=== PATIENT | female | born 1995 | race Caucasian/White ===

== ENCOUNTER 2022-08-08 10:03 | Outpatient (CLI) | payer OTHER, SELFPAY ==
--- NOTE | ~2022-08-08 | US_ITS ---
EXAMINATION: US OB /maternal detail DATE: 08/08/2022 12:02 INDICATION: anatomic survey. TECHNIQUE: Real-time ultrasound of the pelvis was performed. COMPARISON: None. FINDINGS: There is a single living fetus in vertex presentation. The placenta is posterior, 1.3 cm from the ce rvix. The cervical length is 4.8 cm on transvaginal images. heart rate is 145 beats per minute (bpm). The amniotic fluid volume is subjectively normal. The following biometric data were obtained: Biparietal diameter (BPD): 4.0 cm; head circumference (HC): 15.1 cm; abdominal circumference (AC): 13 .3 cm; femur length (FL): 2.9 cm. These measurements are concordant. Estimated weight is 255 g +/- 38 g, which correlates with the 5th percentile when 12/27/22 is us ed as estimated date of delivery. As single measurements, these parameters are each equal to the following estimated gestational ages: BPD: 18 weeks 2 days. HC: 18 weeks 1 days. AC: 18 weeks 5 days. FL: 18 weeks 6 days. estimated gestational age based solely on measurements from this exam is 18 weeks 4 days +/- 1 weeks 2 days. The cerebral ventricles, cerebellum, cisterna magna, nuchal fold, and visualized portions of the spin e are normal. The heart is normal. The diaphragm, stomach, kidneys, and bladder are normal. There are two umbilical arteries to yield a 3-vessel cord. The cord insertion is normal. IMPRESSION: 1. Single living fetus in vertex presentation. 2. Small for gestational age. Estimated weight is 255 g +/- 38 g, which correlates with the 5t h percentile when 12/27/22 is used as estimated date of delivery. 3. Low-lying placenta. 4. Normal anatomic survey. Reviewed, dictated and finalized at location A. IMPRESSION: 1. Single living fetus in vertex presentation. 2. Small for gestational age. Estimated weight is 255 g +/- 38 g, which correlates with the 5th percentile when 12/27/22 is used as estimated date of . 3. Low-lying placenta. 4. Normal anatomic survey.
== END 2022-08-08 10:04 | disposition home or self-care (01) ==
PROVIDERS: PCP Pediatrics; Visit Provider Obstetrics & Gynecology Gynecology
DX: Z36.9 Encounter for antenatal screening, unspecified (principal); Z3A.18 18 weeks gestation of pregnancy
CPT/HCPCS: 76805

== ENCOUNTER 2022-09-04 14:45 | Outpatient (CLI) | payer OTHER, SELFPAY ==
--- NOTE | ~2022-09-04 | US_ITS ---
EXAMINATION: US OB follow up DATE: 09/04/2022 15:22 INDICATION: Estimated size less than expected for estimated gestational age TECHNIQUE: Real-time ultrasound of the pelvis was performed. The interpreting radiologist was not pre sent for the study. COMPARISON: 08/08/22 FINDINGS: There is a single living fetus in breech presentation. The placenta is posterior and low-lying with caudal margin 1.5 cm from the internal cervical os. Normal cervical length of 5.1 cm. heart rat e is 152 beats per minute (bpm). The amniotic fluid is subjectively normal. The following biometric data were obtained: BPD: 5.2 cm -> 21 weeks 5 days Head circumference: 20.4 cm -> 22 weeks 4 days Abdominal circumference: 19.1 cm -> 23 weeks 6 days Femur length: 3.8 cm -> 22 weeks 2 days These measurements are concordant. Head circumference to abdominal circumference ratio: 1.07 (normal range 1.05-1.22). Estimated weight: 554 g (+/-) 83 g or 1 lbs. 4 oz. (+/-) 3 oz. IMPRESSION: 1. Single living fetus in breech presentation with heart rate of 152 bpm. 2. Low-lying posterior placenta with caudal margin 1.5 cm from the internal cervical os. 3. Estimated weight is 15th percentile by Hadlock criteria when 12/27/2022 is used as the estima marisa date of delivery (FILIPPO). Please correlate with clinical information or earlier ultrasounds for mos t accurate FILIPPO. Reviewed, dictated and finalized at location A. IMPRESSION: 1. Single living fetus in breech presentation with heart rate of 152 bpm. 2. Low-lying posterior placenta with caudal margin 1.5 cm from the internal cer vical os. 3. Estimated weight is 15th percentile by Hadlock criteria when 12/27/2022 is used as the estimated date of delivery (FILIPPO). Please correlate with clinica l information or earlier ultrasounds for most accurate FILIPPO.
== END 2022-09-04 14:46 | disposition home or self-care (01) ==
LOC: ANHIMG 14:52
PROVIDERS: PCP Pediatrics; Visit Provider Advanced Practice Midwife
DX: O36.5930 Maternal care for other known or suspected poor fetal growth, third trimester, not applicable or unspecified (principal); O44.42 Low lying placenta NOS or without hemorrhage, second trimester
CPT/HCPCS: 76816

== ENCOUNTER 2022-10-17 09:36 | Outpatient (CLI) | payer OTHER, SELFPAY ==
--- NOTE | ~2022-10-17 | US_ITS ---
EXAMINATION: US OB follow up DATE: 10/17/2022 10:31 INDICATION: Low placenta. TECHNIQUE: Real-time transabdominal obstetric ultrasound. FINDINGS: Comparison to multiple prior studies sequentially, with oldest reviewed study dated 023. There is a single living fetus in vertex presentation. The placenta is posterior without placenta pr evia. AJITH measures 16.7 cm. cardiac activity and movement is noted with a heart rate of 147 beats per minute. T he amniotic fluid volume is normal. The following biometric data were obtained: BPD: 72mm corresponds to gestational age 28 weeks 5 days. Head circumference: 268mm corresponds to gestational age 29 weeks 1 days. Abdominal circumference: 254mm corresponds to gestational age 29 weeks 4 days. Femur length: 55mm corresponds to gestational age 28 weeks 6 days. Estimated weight: 1362grams +/- 204grams. IMPRESSION: 1. Single living intrauterine in vertex presentation with an estimated gestational age of 28 weeks 4 days by inititial ultrasound. Appropriate interval growth. 2. Normal placenta. Reviewed, dictated and finalized at location L. IMPRESSION: 1. Single living intrauterine in vertex presentation with an estimat ed gestational age of 28 weeks 4 days by inititial ultrasound. Appropriate int erval growth. 2. Normal placenta.
[2022-10-17 11:52] LABS: Hematocrit 38.9 % (37.0-47.0); Hemoglobin 13.3 g/dL (12.0-15.0)
[2022-10-17 12:08] LABS: Glucose 1 Hour PP 50gm Dose 150 mg/dL
[2022-10-17 12:31] LABS: Vitamin D 25 Hydroxy 28.8 ng/mL
[2022-10-17 12:49] LABS: HIV 1/2 Ab P24 Ag Result Negative (Negative)
== END 2022-10-17 09:37 | disposition home or self-care (01) ==
PROVIDERS: PCP Pediatrics; Visit Provider Obstetrics & Gynecology Gynecology
DX: O44.13 Complete placenta previa with hemorrhage, third trimester (principal); Z3A.28 28 weeks gestation of pregnancy
CPT/HCPCS: 36415; 76816; 82306; 82947; 85014; 85018; 86703; G0432

== ENCOUNTER 2022-10-19 07:44 | Outpatient (RCR) | payer OTHER, SELFPAY ==
[2022-10-19] MEDS: RHO(D) IMMUNE GLOBULIN 300 MCG/2 ML SYRINGE IM (16:25)
== END 2022-10-19 08:00 | disposition home or self-care (01) ==
LOC: ANHOBOP 07:44
PROVIDERS: PCP Pediatrics; Visit Provider Advanced Practice Midwife
DX: Z29.13 Encounter for prophylactic Rho(D) immune globulin (principal); O36.0190 Maternal care for anti-D [Rh] antibodies, unspecified trimester, not applicable or unspecified; Z3A.00 Weeks of gestation of pregnancy not specified
CPT/HCPCS: 36415; 85461; 86850; 86900; 86901; 90384; 96372; J2790

== ENCOUNTER 2022-11-22 07:54 | Outpatient (CLI) | payer OTHER, SELFPAY ==
[2022-11-22 10:03] LABS: Glucose 1 Hour PP 50gm Dose 176 mg/dL
== END 2022-11-22 07:55 | disposition home or self-care (01) ==
PROVIDERS: PCP Pediatrics; Visit Provider Advanced Practice Midwife
DX: Z36.9 Encounter for antenatal screening, unspecified (principal)
CPT/HCPCS: 36415; 82947

== ENCOUNTER 2022-12-08 15:46 | Outpatient (RCR) | payer OTHER, SELFPAY ==
[2022-12-08 17:03] VITALS: BP 111/44; PULSE 94
== END 2023-02-07 11:48 | disposition home or self-care (01) ==
LOC: ANHOBOP 15:46
PROVIDERS: PCP Pediatrics; Visit Provider Obstetrics & Gynecology Gynecology
DX: O36.8190 Decreased fetal movements, unspecified trimester, not applicable or unspecified (principal); Z3A.35 35 weeks gestation of pregnancy
CPT/HCPCS: 59025

== ENCOUNTER 2022-12-31 17:14 | Inpatient (IN) | payer OTHER, SELFPAY ==
[2022-12-31] VITALS (12 sets, daily range): BP systolic 111–137; BP diastolic 59–88; PULSE 81–107; TEMP 36.6–36.8; BMI 46.2
--- NOTE | 2022-12-31 18:07 | P.PNAN_ITS ---
Anes - Eval Pre Procedure Procedure: labor epidural Date/Time: 12/31/22 18:07 Surgeon: leisa Preop Diagnosis: pain during labor Pre Op Diagnosis: Induction of Labor Patient Data Age: 27 Gender: F Height: Weight: Allergies Allergy/AdvReac Type Severity Reaction Status Date / Time No Known Allergies Allergy Verified 12/11/22 12:04 Home Medications Medication Instructions Recorded Confirmed Type ergocalciferol (vitamin D2) 1,250 1,250 mcg PO WEEKLY 12/11/22 12/11/22 History mcg (50,000 unit) capsule insulin NPH isoph U-100 human 100 5 - 10 unit subcut HS 12/11/22 12/11/22 History unit/mL subcutaneous cartridge vit#24-iron amino acid 1 tablet PO DAILY 12/11/22 12/11/22 History chelat-folic acid 30 mg-975 mcg tablet Patient hx anesthesia problems: none Family hx anesthesia problems: none Results Review: All pre-operative results and documents have been reviewed as part of the pre- operative evaluation. PMF Past Medical History Medical History (Updated 12/31/22 @ 18:08 by Emely Calles CRNA) Gestational diabetes IUP (intrauterine ), incidental Obesity Family History Family History (Updated 12/11/22 @ 12:10 by Zeny Antonio RN) Grandparent Non Hodgkin's lymphoma Social History Social History Substance use: never Spiritual care concerns: No Exam Day of Procedure 12/31/22 18:07
[2022-12-31 18:45] LABS: Glucose Point of Care 87 mg/dl (65-105)
--- NOTE | 2022-12-31 19:04 | LDADM ---
This patient, Chelo Catalan, was admitted to Labor/Delivery/Recovery 105 on 12/31/22 at 17:14. Plans for labor, pain management and were discussed with patient. Patient/family oriented to hospital policies and general routines including ID bracelet, bed and alarms, visiting hours, pain management, procedures, bathroom and other care routines, personal items, smoking policy, room service/diet and guest tray routines, infant security routines, and visiting hours. Patient/Family are encouraged to report perceived risks to care and to ask questions if they do not understand what they are told or what they should do. See OBIX for further documentation.
[2022-12-31 19:08] LABS: Basophils Percent Auto 0.3 % (0.2-1.2); Eosinophils Absolute Auto 0.1 K/mm3 (0-0.3); Eosinophils Percent Auto 0.5 % (0-4.4); Hematocrit 40.2 % (37.0-47.0); Hemoglobin 13.7 g/dL (12.0-15.0); Immature Granulocyte Absolute 0.17 K/mm3 (0.00-0.031); Immature Granulocyte Percent A 1.6 % (0-0.5); Lymphocytes Absolute Auto 2.39 K/mm3 (0.9-3.2); Mean Corpuscular HGB Conc 34.1 g/dl (32-36); Mean Corpuscular Hemoglobin 29.4 pg (26-34); Mean Corpuscular Volume 86.3 fl (80-100); Mean Platelet Volume 11.3 fl (7.4-10.4); Monocytes Absolute Auto 1.1 K/mm3 (0.1-0.6); Monocytes Percent Auto 10.1 % (2.6-8.5); Neutrophils Absolute Auto 7.1 K/mm3 (1.3-6.7); Neutrophils Percent Auto 65.5 % (45.5-73.1); Platelet Count Result 230 k/mm3 (150-375); Red Blood Count 4.66 M/mm3 (4.2-5.4); Red Cell Distribution Width 13.7 % (11.5-14.5); White Blood Count 10.8 K/mm3 (4.5-10.0)
[2022-12-31] MEDS: DINOPROSTONE 10 MG VAG INSERT VAGINAL (19:24)
[2022-12-31 22:04] LABS: Glucose Point of Care 71 mg/dl (65-105)
[2023-01-01] VITALS (209 sets, daily range): BP systolic 83–163; BP diastolic 45–119; PULSE 72–121; TEMP 36.6–37.2; O2SAT 94–100
[2023-01-01 02:11] LABS: Glucose Point of Care 102 mg/dl (65-105)
[2023-01-01 06:38] LABS: Glucose Point of Care 101 mg/dl (65-105)
[2023-01-01] MEDS: LACTATED RINGERS 1,000 ML 125 ML IV CONT ×3 (08:08→15:36)
[2023-01-01] MEDS: OXYTOCIN 30 UNITS/NS 500 ML 30 UNITS/500 ML BAG 6 UNITS IV CONT (08:09)
[2023-01-01 10:36] LABS: Glucose Point of Care 113 mg/dl (65-105)
[2023-01-01 11:06] LABS: Rapid Plasma Reagin Non-Reactive (NonReactive)
[2023-01-01 14:43] LABS: Glucose Point of Care 76 mg/dl (65-105)
--- NOTE | 2023-01-01 16:30 | WPDOBADMIT ---
Obstetrics - Admit Note Admission Note: record reviewed. No pertinent additions to the history and/or any subsequent changes in the physical findings that are not consistent with the expected course of the were found. Additions to the history and/or subsequent changes in the physical findings follow. Here for MIL @39 wks for GDMA2. Cervadil last pm and now pitocin. Now 2-/-2 AROM with meconium noted. Continue MIL.
[2023-01-01 18:43] LABS: Glucose Point of Care 73 mg/dl (65-105)
[2023-01-01 22:25] LABS: Glucose Point of Care 77 mg/dl (65-105)
[2023-01-02] VITALS (236 sets, daily range): BP systolic 96–152; BP diastolic 21–107; PULSE 69–173; RESP 16–18; TEMP 36.4–37.2; O2SAT 94–100
[2023-01-02 02:07] LABS: Glucose Point of Care 81 mg/dl (65-105)
[2023-01-02 04:24] LABS: Glucose Point of Care 79 mg/dl (65-105)
[2023-01-02 06:42] LABS: Glucose Point of Care 81 mg/dl (65-105)
--- NOTE | 2023-01-02 07:28 | PM.OBPNLAB ---
Pain Control Date/time seen: 01/02/23 07:28 Pain control: tolerating well and epidural Comments: resting on side Pelvic Exam Dilation (cm): 8 Effacement (%): 80 Amniotic membrane status: Ruptured Contractions Contraction pattern: Regular Status status: Category l Assessment and Plan Assessment: induction ongoing Plan: continuous present management
[2023-01-02] MEDS: ONDANSETRON INJ 4 MG/2 ML VIAL IV PUSH (07:31)
[2023-01-02] MEDS: LACTATED RINGERS 1,000 ML 125 ML IV CONT (08:27)
[2023-01-02 09:46] LABS: Glucose Point of Care 69 mg/dl (65-105)
[2023-01-02] MEDS: AMPICILLIN 2 GM/NS 100 ML 2 GM/100 ML BAG IVPB (10:21)
[2023-01-02 11:49] LABS: Glucose Point of Care 84 mg/dl (65-105)
--- NOTE | 2023-01-02 12:37 | P.PCNOB_ITS ---
OB - Delivery Note Procedure Delivery date: 01/02/23 Procedure: Events: Gestational Diabetes (GDMA2) Induction method: AROM, Per Pitocin Protocol and Per Cervidil Protocol Delivery monitor: External FHT and Internal Uterine Route of delivery: Laceration Description: Perineal - 2nd Degree Delivery repair: vicryl (3-0) Specimen: Yes (placenta) Quantitative Blood Loss (ml): 150 Anesthesia type: Local Disposition: Floor Baby Date of : 01/02/23 Weeks of gestation at delivery: 39 gender: Male Weight (pounds): 7 Weight (ounces): 2 presentation: vertex position: Right Occiput Anterior Placenta delivery description: Spontaneous Cord Vessel Description: 3 Vessels, Nuchal Cord (tight, delivered through) and Clamped/Cut score one minute: 8 score five minutes: 9 Narrative: installation and service technician present for delivery secondary to meconium
--- NOTE | 2023-01-02 12:39 | PM.OBDSVD ---
DS: Admitting Diagnosis Discharge Date 01/04/23 Admitting Diagnosis IUP 39 wks GDMA2 DS: Discharge Diagnosis Discharge Diagnosis (1) (normal spontaneous vaginal delivery): Code(s): O80 - Encounter for full-term uncomplicated delivery Status: Acute OB - DS: Summary OB Procedures : NST, Ultrasound and Other (diabetes mgmt) OB Procedures Intrapartum: Spontaneous Vag Delivery OB Procedures: : None Peripartum Data Delivery Method: Natural Vaginal Laceration Description: Perineal - 2nd Degree complications: none Status at Discharge Functional status at discharge: independent ambulation Overall status at discharge: patient is progressing back to baseline Time Spent with Patient Time attestation: Total time spent providing and/or coordinating discharge services: DS: Data Data Completed and Pending Labs on day of discharge: Labs from last 24 hours 01/02/23 01/02/23 01/02/23 11:47 09:41 06:29 POC Capillary Glucose 84 69 81 01/02/23 01/02/23 01/01/23 04:20 02:04 22:23 POC Capillary Glucose 79 81 77 01/01/23 01/01/23 18:36 14:38 POC Capillary Glucose 73 76 Discharge Plan Discharge Attending physician on discharge: Lilia Roman Consulting providers: Jeannette Connor; Emely Calles; Skyler Mckeon Discharging Clinician: Jeannette Connor Anticipated Discharge Date/Time: 01/04/23 12:40 Patient Disposition: Home, Self-Care Activity: may shower and pelvic rest Diet: regular Wound Care Instructions: follow printed instructions Discharge Instructions: Education: Mom and Baby Guide Given to: Mother Follow-Up: Call your delivering provider's office for an appointment to be seen in: 6 Weeks Mom and baby should come to the [facility] for the follow-up appointment. Appointment Date/Time: January 05, 2023 at 3:30 pm What to expect at your follow-up visit: Blood Pressure Check Physical Assessment Call [phone] if you are unable to keep your appointment time. BREAST CARE: * Wear a snug supportive bra. * For engorgement discomfort: Breast Feeding: * Apply warm moist washcloths * Express milk as needed to relieve engorgement * Wear loose clothing Bottle Feeding: * May apply ice packs * For sore nipples: * Identify correct latch-on * Apply warm moist washcloths before and after nursing * Air dry nipples after nursing * May apply Lansinoh cream to nipples PERINEAL CARE: * Until bleeding stops, use your tavo bottle after urinating * Change your pad frequently throughout the day * You may take sitz baths several times a day (fill your bathtub with warm water and soak for 20 minutes.) Do NOT bathe in the water * No tub baths until seen by your physician - You may shower ACTIVITY: * Rest as much as possible. * Do not exercise or lift anything heavier than your baby (such as laundry or other children.) * Avoid stairs or driving as much as possible. * Do not put anything into the vagina. No douching, tampons, or sexual activity until seen by physician. NOTIFY PHYSICIAN IF YOU HAVE ANY QUESTIONS OR IF ANY OF THE FOLLOWING SYMPTOMS OCCUR: * If your vaginal bleeding becomes foul smelling. * If your vaginal bleeding becomes more heavy than a period or if your bleeding changes from pink to bright red. However, you may pass an occasional walnut-sized clot once or twice for the first week . * If you experience a sharp, shooting pain in your calves. * If you discover a hard, reddened area on your breast or if you experience flu-like symptoms. DIET: * Eat regular, well-balanced meals. * Drink plenty of fluids daily. If , drink to thirst. Continue taking your vitamin and any other supplements as previously directed (Examples: Iron, Vitamin D). You may take Tylenol 1000mg over the counter every 6 hours
[2023-01-02] MEDS: OXYTOCIN 30 UNITS/NS 500 ML 30 UNITS/500 ML BAG 125 UNITS IV CONT (12:40)
[2023-01-02] MEDS: IBUPROFEN 600 MG TABLET PO (14:47)
[2023-01-02] MEDS: BENZOCAINE 20% AER SPR (*SP) 56 GM CAN 1 SPRAY TOPICAL (14:48)
[2023-01-02] MEDS: WITCH HAZEL 40 PADS 1 PAD TOPICAL (14:48)
--- NOTE | 2023-01-02 15:55 | PC.NURSE ---
Patient transferred to post room #290 via wheelchair. Support person present. Oriented to unit, room, information board, rooming in, admission packet and security measures. Patient verbalizes understanding.
[2023-01-03 03:40] VITALS: BP 128/81; PULSE 86; RESP 18; TEMP 36.6
[2023-01-03] MEDS: IBUPROFEN 600 MG TABLET PO ×2 (03:43→20:40)
[2023-01-03 06:53] LABS: Hematocrit 35.7 % (37.0-47.0); Hemoglobin 12.2 g/dL (12.0-15.0)
[2023-01-03 07:35] VITALS: BP 123/65; PULSE 76; RESP 18; TEMP 36.6; O2SAT 99
[2023-01-03] MEDS: MULTIVIT/MIN/PREN/FOL AC/IRON TABLET 1 TAB PO (08:43)
[2023-01-03] MEDS: DOCUSATE SODIUM 100 MG CAPSULE PO (08:43)
--- NOTE | 2023-01-03 10:50 | PC.NURSE ---
Breast pump provided per pt request and infant poor latch. Instructions given on cleaning, care, usage, that there should be no pain, pumping schedule for milk production, collection, and storage of human milk. Patient was assessed for correct placement, flange size, to pump for comfort and nipple stretching/stimulation for adequate milk production every 3 hours (8 times in 24 hours) 1-2 times at night. Mother voiced understanding of the education shared along with mom and baby guide for additional resource information.
--- NOTE | 2023-01-03 10:55 | P.PNOB_ITS ---
OB - PN: Subj Subjective Date/time seen: 01/03/23 0730 Patient comments: no complaints and pain well controlled baby status: other (attempting to breastfeed) [place] feeding status: breast and bottle feeding Narrative: PPD 1 from . Tolerating regular diet, urinating without difficulty. Denies passing any large clots. Bonding with infant. OB - PN: Obj Data Labs 01/03/23 06:41 Labs: Laboratory Results - last 24 hr 01/02/23 01/03/23 01/03/23 11:47 06:38 06:41 Hgb 12.2 Hct 35.7 L POC Capillary Glucose 84 Blood Type A Negative Antibody Screen Negative Screen Negative Baby's Blood Type A pos Baby's YOLANDA Negative Doses of RhIg Required 1 OB - PN A/P Plan day: 1 Plan: routine care Time Spent With Patient Time: Total time spent is greater than 50% in coordination of care (as documented) at patient's floor/unit and/or counseling patient: Review of Systems Review of Systems: All systems reviewed & are unremarkable except as noted in HPI and below Constitutional: Constitutional: Reports no additional constitutional complaints Exam Narrative: Alert and oriented. Mood is pleasant and cooperative. Perineum with minimal edema. Fundus firm and below umbilicus. Const: General: cooperative, healthy appearing, no acute distress and alert Orientation/consciousness: patient oriented x3 Limitations: no limitations Resp: Effort & Inspection: normal respiratory effort and able to speak in complete sentences Auscultation: clear to auscultation bilaterally Cardio: Rate: regular rate GI: Inspection: normal to inspection Auscultation: normal bowel sounds : Speculum Exam - Vagina: vaginal bleeding OB/external & speculum: vaginal bleeding Skin: General skin exam: normal color and no rashes or lesions noted Neuro: General: patient oriented x3 and moves all extremities Cognition (Neuro): normal cognition Extrem: General: normal to inspection and no calf tenderness Psych: Appearance: grossly normal Mental Status: mental status grossly normal Affect: normal affect Thought process: Normal thought process pres ent
[2023-01-03] MEDS: RHO(D) IMMUNE GLOBULIN 300 MCG/2 ML SYRINGE IM (12:17)
--- NOTE | 2023-01-03 12:20 | PC.NURSE ---
[id number] Introductions were made, then consulted with patient to assess needs related to . Mother led the conversation with her?plans to breastfeed?her infant, the?experience so far and supplementation. Mother works well with her with encouragement and education. Encouraged understanding of the benefits of skin to skin (demonstrating unwrapping and placing upright on her chest), stimulating with massage touch, changing positions to encourage wakefulness, how to watch for early feeding cues, responsive feeding, feeding on demand (aiming for 8-12 times in 24 hours, about every 2-3 hours), milk production, hand expression, building/maintaining a milk supply, duration of feeding, signs of adequate intake/output and how to record on the feeding sheet. Reviewed positioning and ear, shoulder, hip alignment, supporting the breast to facilitate a deep latch, asymmetrical latch (off-center), leading with the chin with a big, open, wide gape and body close to mother. Infant doesn't demonstrate a big, open, wide gape and arches his back when brought to the breast. was given skin to skin time to explore and use instincts to find the breast. Nipple care reviewed with optimal latch and good positioning. Gentle attempts were made with infant to encourage latching without success. Educated mother on protecting her milk supply with pumping since infant is not latching and receiving bottles. (risks and benefits were discussed along with her medical history) Mother voiced understanding of skin to skin, stimulating with massage touch, responsive feedings, hand expressed colostrum, talking to infant to encourage if it has been 2 -2.5 hours since the start of the last , to call if infant does not latch, or if there is discomfort with . Resources provided for inpatient/outpatient with feeding sheet and the mom/baby guide. Parents voiced understanding of information, demonstrated learning and will call if there is a request for assistance. Reported to the Primary RN and she will initiate pumping.
[2023-01-03 12:24] VITALS: BP 132/81; PULSE 73; RESP 18; TEMP 36.8; O2SAT 99
--- NOTE | 2023-01-03 16:28 | WPDANLDPN2 ---
Anes-Prog Note L&D Date/Time: 01/03/23 16:28 Comfortable throughout: labor and delivery Neuraxial method: epidural Epidural/Spinal procedure site: clean & non-tender Neuro status: Neuro function grossly intact. Cardiovascular status: normal Respiratory status: normal Airway patency: baseline Mental status: baseline Post-Op hydration status: normal Vital Signs: Last Vital Signs Temp 36.8 C 01/03/23 12:24 Pulse 73 01/03/23 12:24 Resp 18 01/03/23 12:24 BP 132/81 01/03/23 12:24 Pulse Ox 99 01/03/23 12:24 O2 Del Method Room Air 01/02/23 19:40 Pain score (VAS): 2/10 Post-procedural complaints: none Patient feedback: Patient satisfied with anesthetic care.
[2023-01-03 20:40] VITALS: BP 143/85; PULSE 83; RESP 18; TEMP 36.5
[2023-01-04 08:05] VITALS: BP 131/71; PULSE 72; RESP 16; TEMP 36.6; O2SAT 98
[2023-01-04] MEDS: IBUPROFEN 600 MG TABLET PO (08:52)
[2023-01-04] MEDS: MULTIVIT/MIN/PREN/FOL AC/IRON TABLET 1 TAB PO (08:53)
[2023-01-04] MEDS: DOCUSATE SODIUM 100 MG CAPSULE PO (08:53)
--- NOTE | 2023-01-04 10:19 | PM.OBPNVD ---
OB - PN: Subj Subjective Date/time seen: 01/04/23 0940 Interval history: PPD 2. Doing well. Urinating without difficulty. Denies passing any large clots. Denies dizziness with ambulating. Tolerating po food an fluids. Bonding with . Attempting and is breast pumping. OB - PN: Obj Data Labs 01/03/23 06:41 Labs: Laboratory Results - last 24 hr 01/03/23 06:38 Blood Type A Negative Antibody Screen Negative Screen Negative Baby's Blood Type A pos Baby's YOLANDA Negative Doses of RhIg Required 1 OB - PN A/P Plan day: 2 Plan: discharge home Time Spent With Patient Time: Total time spent is greater than 50% in coordination of care (as documented) at patient's floor/unit and/or counseling patient: Review of Systems Review of Systems: All systems reviewed & are unremarkable except as noted in HPI and below Constitutional: Constitutional: Reports no additional constitutional complaints Genitourinary: Comments: Urinating without difficulty. Exam Narrative: Alert and oriented. Mood is pleasant and cooperative. Perineum with minimal edema. Fundus firm and below umbilicus. Const: General: cooperative, healthy appearing, no acute distress and alert Orientation/consciousness: patient oriented x3 Limitations: no limitations Resp: Effort & Inspection: normal respiratory effort and able to speak in complete sentences Auscultation: clear to auscultation bilaterally Cardio: Rate: regular rate GI: Inspection: normal to inspection Auscultation: normal bowel sounds : Speculum Exam - Vagina: vaginal bleeding OB/external & speculum: vaginal bleeding Skin: General skin exam: normal color and no rashes or lesions noted Neuro: General: patient oriented x3 and moves all extremities Cognition (Neuro): normal cognition Extrem: General: normal to inspection and no calf tenderness Psych: Appearance: grossly normal Mental Status: mental status grossly normal Affect: normal affect Thought process: Normal thought process present
--- NOTE | 2023-01-04 10:39 | PC.NURSE ---
[id number] RN was called to the room for assistance with syringe feeding. Reported to RN this morning mother is pumping and formula bottle feeding. Entering the room I visualized father of the baby attempting to bottle feed his infant without success. Parents had decided to put the 4mls of colostrum mixed in with a small amount of formula to feed the infant with a bottle and no longer wanted to syringe feed. Demonstrated positioning upright, burped , then supported with bottle feeding. Reviewed milk production and consistent pumping with mother to protect her milk supply. Resources reviewed for community support, medication information reviewed per [employer] recommending no marijuana use and when to call a provider using the resource of the mom and baby guide. Mother voiced understanding of the education shared. Reported to the primary RN.
--- NOTE | 2023-01-04 12:00 | PC.NURSE ---
Patient viewed the discharge video Mother & Baby Care, The First Two Weeks . Patient was given the opportunity and encouraged to ask questions. Patient verbalized understanding of information shared and has been given the mother/baby guide for home reference.
[2023-01-05 14:54] VITALS: BP 131/77; PULSE 77; RESP 20; TEMP 37.1; O2SAT 100
== END 2023-01-04 13:30 | disposition home or self-care (01) | DRG 560 ==
LOC: ANHLDR 01-02 12:40 → ANHOB2 01-02 16:01
PROVIDERS: Admitting Provider Obstetrics & Gynecology Gynecology; PCP Pediatrics; Visit Provider Obstetrics & Gynecology Gynecology
DX: O24.424 Gestational diabetes mellitus in childbirth, insulin controlled (principal); Z37.0 Single live birth; O42.92 Full-term premature rupture of membranes, unspecified as to length of time between rupture and onset of labor; O69.1XX0 Labor and delivery complicated by cord around neck, with compression, not applicable or unspecified; O77.0 Labor and delivery complicated by meconium in amniotic fluid; O70.1 Second degree perineal laceration during delivery; Z3A.39 39 weeks gestation of pregnancy
CPT/HCPCS: 36415; 82948; 85014; 85018; 85025; 85461; 86592; 86850; 86880; 86900; 86901; 88307; 90384; A9270; J0290; J2405; J2590; J2790; J2795; J7120

== ENCOUNTER 2024-09-17 04:09 | Emergency (ER) | payer OTHER, MEDICAID, SELFPAY ==
[2024-09-17] VITALS (10 sets, daily range): BP systolic 123–136; BP diastolic 70–88; PULSE 65–85; RESP 12–19; TEMP 36.6; O2SAT 100
[2024-09-17] MEDS: ONDANSETRON HCL ODT 4 MG TABLET PO (04:30)
[2024-09-17] MEDS: BISMUTH SUBSALICYLATE 262 MG CHEWABLE TABLET 524 MG PO (04:30)
[2024-09-17] MEDS: DICYCLOMINE HCL 10 MG CAPSULE 20 MG PO (04:30)
--- OUTSIDE RECORDS SUMMARY | 2024-09-17 04:30 | XMS_ITS | Clinical Summary ---
Author Organization [address] Address [address] [place] [id number] Care Team Providers Care Integration Architect Name Role Phone Unknown, Notinfile Primary Care Provider Unavail able Allergies No known active allergies Medications escitalopram (LEXAPRO) 20 mg tablet Take 1 tablet (20 mg total) by mouth daily 11/09/2023 Active Active Problems No known active problems Social History Tobacco Use Types Packs/Day Years Used Date Smoking Tobacco: Never Assessed Comments Unknown Sex and Gender Information Value Date Recorded Sex Assigned at Not on file Legal Sex Female 6:50 PM CDT Gender Identity Not on file Sexual Orientation Not on file Obstetrics History Last Filed Vital Signs Vital Sign Reading Time Taken Comments Blood Pressure 174/82 01/04/2024 7:42 PM CDT Pulse 89 01/04/2024 7:39 PM CDT Temperature 36.3 C (97.4 F) 01/04/2024 7:39 PM CDT Respiratory Rate 21 01/04/2024 7:39 PM CDT Oxygen Saturation 98% 01/04/2024 7:39 PM CDT Inhaled Oxygen Concentration - - Weight 107 kg (236 lb) 01/04/2024 7:39 PM CDT Height 66 cm (2' 1.98 ) 01/04/2024 7:39 PM CDT Body Mass Index 245.76 01/04/2024 7:39 PM CDT Plan of Treatment Health Maintenance Due Date Last Done Comments Cervical Cancer Screening 1996 Depression Screening 1996 Hepatitis C Screening 1996 DTaP/Tdap/Td Vaccine (1 - Tdap) 07/10/2007 Varicella Vaccines (1 of 2 - 13+ 2-dose series) 2009 Hepatitis B Screening 2014 Regular Well Visit/Exam 18-64 2014 Covid-19 Vaccine (2023-2 5 season) 2023 10/03/2020, 09/12/2020 Influenza Vaccine (Season Ended) 2024 HPV Vaccines Aged Out No longer eligi ble based on patient's age to complete this topic Pneumococcal vaccine <65 Aged Out No longer eligible based on patient's age to complete this topic Insurance [employer] Care Teams Integration Architect Relationship Specialty Start Date End Date Unknown, Notinfile PCP - General 01/04/24
--- OUTSIDE RECORDS SUMMARY | 2024-09-17 04:30 | XMS_ITS | Referral Summary ---
Author Organization [address] Address [address] [place] [id number] Care Team Providers Care Machine Records Units Supervisor Name Role Phone Unknown, Notinfile Primary Care [...] on file Sexual Orientation Not on file Last Filed Vital Signs Vital Sign Reading [...] 01/04/2024 7:39 PM CDT Plan of Treatment Not on file Insurance [employer] [facility] [employer] Care Teams Machine Records Units Supervisor Relationship Specialty Start Date End Date Unknown, Notinfile PCP - General 01/04/24
--- OUTSIDE RECORDS SUMMARY | 2024-09-17 04:30 | XMS_ITS | Continuity of Care Document ---
Author Organization [facility] Address [address] [facility] [place] [address] Phone Care Team Providers Care Military Science Instructor Name Role Phone Bon Harden MD Unavailable Unavailable Allergies, Adverse Reactions, Alerts Substance Reaction Status Criticality No Known Allergies Active No Inform ation No Known Allergies Active No Inform ation Medications Medication Instructions Dosage Effective Dates (start - stop) Status Comments phentermine 37.5 mg tablet take 1 tablet by oral route every day before breakfast 37.5 MG - Active Lexapro 20 mg tablet take 1 tablet by or al route every day 20 MG - Active Procedures Procedure Date OFFICE/OUTPATIENT VISIT, EST OFFICE/OUTPATIENT VISIT, EST PREV VISIT, NEW, AGE 18-39 OFFICE/OUTPATIENT VISIT, NEW Advance Directives Directive Yes / No Effective Date File Name No Information Encounters Encounter Description Practice Location Reason(s) For Visit Diagnoses Date Provider Providers Copied on Encounter OFFICE/OUTPA TIENT VISIT, [facility], [address] [facility] [address] [place], [id number], tel:[phone] [facility] anxiety1 (chief complaint) obesity1 (chief complaint) irregular period1 (chief complaint) Generalized Anxiety DisorderIrregular periodAbnormal weight gainHirsutism 5 Dereck Crockett. [address] [employer] [facility] [place], [id number] , [place]. tel:[phone] OFFICE/OUTPA TIENT VISIT, [facility], [address] [place], [id number], [place] tel:[phone] [facility] sinus1 (chief complaint) anxiety1 (chief complaint) Acute sinusitisGeneralize d Anxiety Disorder 4 Harden Bon. [address] [facility] [address], [place], [place], [id number] , [place]. tel:[phone] PREV VISIT, NEW, AGE 18-39 [facility], [address] [place], [id number], [place] tel:[phone] [facility] physical (chief complaint) Encounter for general adult medical exam w abnormal findingsAbnormal finding in urineCellulitis of umbilicusHirsutismA bnormal weight gainIrregular periodGeneralized Anxiety Disorder 4 Dereck Bon. [address], [place], [place], [id number] , [place]. tel:[phone] Family History Family Member Type Diagnosis Age At Onset Mother Problem Obesity Father Problem Depression Brother Problem Alive and well Payers Payer name Insurance type Covered constitution party ID Antonieta basurto(s) Berenice [id number] Social History Type Description Quantity Date Captured Comments Alcohol Use Details No Caffeine Use Details coffee 3 cups per day Tobacco Use Status Ex-cigarette smoker 025 Smoking Status Former smoker Sex Female Vital Signs Date / Time: Height Weight BMI Pulse Rate Blood Pressure Temperature Respiratory Rate Body Surface Area Head Circumference BMI percentile Pulse Ox Inhaled Ox 4:47 PM 66.00 in 267.80 lbs 43.2 2 kg/m eter (2) 103 /min 120/70 mm[Hg] 97.7 F 16 /min Chief Complaint And Reason For Visit From encounter dated '06/23/2024 16:46'. anxiety1 (chief complaint). Description: Pt has chronic anxiety and depression Pt takes lexapro anddoing well .Pt denies any suicidal or homicidal thought. Pt denies any crying spells obesity1 (chief complaint). Description: Pt is obese .Pt wants to try weight loss medication Pt failed diet and exercise. irregular period1 (chief complaint). Description: Pt has irregular period with hirsutism. Pt has not done lab yet. Plan Of Treatment Date Type Action Status Appointment Chelo Catalan BOOKED History Of Present Illness Encounter Date Complaint History Of Prese nt Illness anxiety1 Pt has chronic a nxiety and depression Pt takes lexapro and doing well .Pt denies any suicidal or homicidal thought. Pt denies any crying spells obesity1 Pt is obese .Pt wants to try weight loss medication Pt failed diet and exercise. irregular period1 Pt has irregul ar period with hirsutism. Pt has not done lab yet. sinus1 Pt c/o acute ons et of sinus congestion, purulent sinus drainage, mils sore throat, sinus pressure, ear pain for 3 days .Pt denies any fever, chill, cough or sob. Pt denies any headache. Pt has been using OTC sinus medicine but not working anxiety1 Pt has chronic a nxiety and depression Pt takes lexapro and doing ok Pt denies any suicidal or homicidal thought Pt denies any crying spells. physical Pt needs annual physical. Pt has depression and she has been on lexapro for almost one year. Pt states that her mood is better now but she still has some anxiety. Pt denies any suicidal or homicidal thought Pt denies any crying spells. Pt c/o foul smelling urine for two months ,Pt denies any urinary urgency, dysuria, frequency, flank pain, pelvic pain. Pt denies any dark urine Pt also notices a foul smelling and pus appearing discharge from umbilicus for 2-3 months Pt denies any abd pain Pt denies any nausea, vomiting, diarrhea . Pt is [age] year . Pt has irregular period. Pt has excessive hair growth under chin and around arm and leg. Pt told me she had negative pelvic ultrasound so she was told that she does not have PCOS Instructions Date Instruction Additional Infor mation No Information Assessments Type Assessment Date assessment Generalized Anxiety Disorder May assessment Irregular period assessment Abnormal weight gain assessment Hirsutism Mental Status Date Cognitive Assessment Orientation - [place] ed to time, place, person, situation.
--- NOTE | 2024-09-17 05:10 | ED.NAVMDI ---
HPI - Nausea/Vomiting/Diarrhea General Chief complaint: Abdominal Pain Stated complaint: ABD PAIN, N/D Time Seen by Provider: 09/17/24 04:11 History of Present Illness HPI Narrative: Patient presents here with severe abdominal pain, nausea vomiting and diarrhea started earlier tonight after eating [employer]. Also had some chills and felt like she was going to pass out. Related Data Home Medications ?Medication ?Instructions ?Recorded ?Confirmed ?Last Taken ?Type ergocalciferol (vitamin D2) 1,250 1,250 mcg PO WEEKLY 12/11/22 12/11/22 Unknown History mcg (50,000 unit) capsule vit#24-iron amino acid 1 tablet PO DAILY 12/11/22 12/11/22 1 Day Ago History chelat-folic acid 30 mg-975 mcg ~12/10/22 tablet escitalopram oxalate 20 mg tablet mg 09/17/24 Unknown History phentermine 37.5 mg tablet mg 09/17/24 Unknown History Allergies Allergy/AdvReac Type Severity Reaction Status Date / Time No Known Allergies Allergy Verified 09/17/24 04:30 Review of Systems Review of Systems: All systems reviewed & are unremarkable except as noted in HPI and below PMFSH Past Medical History Medical History (Updated 09/17/24 @ 05:06 by Airam Jones MD) Gestational diabetes Obesity IUP (intrauterine ), incidental Family History Family History (Updated 12/11/22 @ 12:10 by Zeny Antonio RN) Grandparent Non Hodgkin's lymphoma Social History Social History Smoking status: Current every day smoker Tobacco type: cigarettes Second hand tobacco smoke exposure: No Smoking end date: 12/31/22 Substance use: never Lack of Transportation: YES Lack of Food: Never True Current Housing: I Have Housing Concerned About Future Housing: No Difficulty Paying Gas/Electric Bills: No Difficulty Paying for Meds: No Currently Unemployed: No Education: High School Diploma/GED Difficulty w/ Childcare or Family Care: YES Spiritual care concerns: No Exam Narrative: EXAMINATION OF ORGAN SYSTEMS/BODY AREAS: Constitutional: Vital signs per nursing GENERAL:[No acute distress, non-toxic appearing.] HEAD: Normal with no signs of head trauma. EYES: EOMI, conjunctiva normal ENT: Hearing grossly intact LUNGS: Nonlabored breathing. HEART: [Regular rate and rhythm] ABD: [Soft], [nontender to palpation] EXT: Normal range of motion SKIN: [No rashes or lesions.] NEURO: [Alert and oriented x 3. No gross focal sensory or strength deficits.] PSYCH: Normal affect Course Vital Signs Vital signs: Vital Signs Temperature 97.8 F 09/17/24 04:07 Pulse Rate 69 09/17/24 04:07 Respiratory Rate 16 09/17/24 04:07 Blood Pressure 125/78 09/17/24 04:07 Pulse Oximetry 100 09/17/24 04:07 Oxygen Delivery Room Air 09/17/24 04:07 Temperature 97.8 F 09/17/24 04:07 Pulse Rate 69 09/17/24 04:07 Respiratory Rate 16 09/17/24 04:07 Blood Pressure 125/78 09/17/24 04:07 Pulse Oximetry 100 09/17/24 04:07 Oxygen Delivery Room Air 09/17/24 04:07 MDM - Nausea/Vomiting/Diarrhea MDM Narrative Medical decision making narrative: Patient presenting with nausea, vomiting, diarrhea, lower abdominal pain/cramping. She called EMS for this and by the time she arrived, her symptoms have improved quite a bit, though she is still nauseous and having diarrhea. She is treated symptomatically, and on re-evaluation, feels much better, abdominal pain has eased, she is no longer nauseous, she is tolerating p.o.. Did discuss potentially further investigation however I do not feel be very beneficial since this is only been ongoing for few hours and she has soft, nontender abdomen, and symptoms have essentially resolved. She also is already getting blood work for doctor's appointment in a few days. I will provide prescriptions for her symptoms and let her know that she can not come back to the ER if her symptoms return. Patient and at bedside agreeable to this plan. Discharge Plan Discharge Clinical Impression: Nausea, vomiting, and diarrhea Patient Disposition: Home Condition: Stable Instructions: Antibiotic Form Additional Instructions: Please follow up with your PCP; you can take the meds prescribed and come back for any further issues. Patient Language: Romanian Prescriptions: New famotidine 20 mg tablet 20 mg PO DAILY Qty: 30 0RF dicyclomine 20 mg tablet 20 mg PO TID PRN (Reason: abdominal pain) Qty: 30 0RF alum-mag hydroxide-simeth [Maalox Advanced] 200-200-20 mg/5 mL suspension 10 ml PO QID PRN (Reason: dyspepsia) Qty: 200 0RF Rx Instructions: administer between meals and at bedtime ondansetron 4 mg tablet,disintegrating 4 mg PO Q8H PRN (Reason: nausea and vomiting) Qty: 14 0RF loperamide-simethicone 2-125 mg tablet 1 tablet PO Q2H PRN (Reason: loose stool) Qty: 14 0RF Rx Instructions: do not exceed 4 tabs in 24 hrs No Action ergocalciferol (vitamin D2) 1,250 mcg (50,000 unit) capsule 1,250 mcg PO WEEKLY PNV no.69-afvj-eclod acid 30-975 mg-mcg Tablet 1 tablet PO DAILY norethindrone (contraceptive) 0.35 mg tablet 0.35 mg PO DAILY Qty: 84 6RF ibuprofen 600 mg tablet 600 mg PO Q6H PRN (Reason: pain) Qty: 30 0RF docusate sodium [Colace] 100 mg capsule 100 mg PO BID Qty: 60 0RF phentermine 37.5 mg tablet escitalopram oxalate 20 mg tablet Follow-up/Referrals: Corinna,MD Jess [Primary Care Provider] -
[2024-09-17] MEDS: MAG HYDROX/AL HYDROX/SIMETH 30 ML UDC PO (05:24)
[2024-09-17] MEDS: FAMOTIDINE 20 MG TABLET PO (05:24)
[2024-09-17] MEDS: LOPERAMIDE HCL 2 MG CAPSULE 4 MG PO (05:27)
== END 2024-09-17 05:36 | disposition home or self-care (01) ==
PROVIDERS: Emergency Provider Emergency Medicine; PCP Pediatrics
DX: R11.2 Nausea with vomiting, unspecified (principal); R19.7 Diarrhea, unspecified; E66.9 Obesity, unspecified; Z68.41 Body mass index [BMI] 40.0-44.9, adult; Z87.891 Personal history of nicotine dependence; Z79.3 Long term (current) use of hormonal contraceptives
CPT/HCPCS: 96374; 96375; 99284; A9270